=== PATIENT | female | born 1950 | race Caucasian/White ===

== ENCOUNTER 2016-04-10 09:19 | Day surgery (SDC) | payer BC ==
[~2016-04-10] VITALS: Ht 170.2 cm; Wt 78.4 kg
[~2016-04-10 09:19] MED LIST: CHOLESTEROL MED PO; DIVA-16 PO; LATUDA PO; LOMOTIL PO; NAUSEA MED PO; PRIM250T37 PO; SERT20OR PO
[2016-04-10] MEDS ORDERED: RISPERDAL (10:22)
[2016-04-10] MEDS ORDERED: LORAZEPAM (10:22)
[2016-04-10] MEDS ORDERED: INHALER (10:22)
[2016-04-10 10:25] VITALS: Ht 170.2 cm; Wt 78.4 kg
[2016-04-10 10:46] VITALS: BP 94/63; PULSE 73; RESP 18
[2016-04-10] MEDS ORDERED: LIDOCAINE 2% (SDV) 5 ML INJ ONE (10:50)
[2016-04-10] MEDS ORDERED: MIDAZOLAM 1 MG/ML 2 ML INJ ONE (10:50)
[2016-04-10] MEDS ORDERED: PROPOFOL 20 ML ONE ×2 (10:50→11:30)
[2016-04-10 11:20] VITALS: BP 96/57; PULSE 84; RESP 20
[2016-04-10 11:42] VITALS: BP 98/53; PULSE 76; RESP 12
[2016-04-10 12:05] VITALS: BP 122/80; PULSE 74; RESP 21
--- NOTE | 2016-04-10 18:21 | GILP ---
DATE OF PROCEDURE: INDICATION: A 66-year-old female undergoing this procedure for chronic diarrhea and colon cancer sc alejandra. The risks of the procedure, related and unrelated complications, anesthetic risks, alterna tives discussed. Informed consent was obtained. DESCRIPTION OF PROCEDURE: The patient was brought to the GI lab, sedated by Dr. Montgomery. After obtain ing sedation, scope was passed with much ease into rectum and she had a semi-formed stool throughout the colon precluding the visibility. Scope was advanced all the way into the cecum and entered int o terminal ileum, which was normal. Appendiceal orifice was normal. However, there was a thickened fold in the prececal area, which was biopsied. There was another flat polyp identified at 60 cm, a gain biopsied with jumbo biopsy forceps. There was another flat polyp in the neighborhood. These a re totally flat polyps. Again it was biopsied and there was a third polyp, also flat in the same ne ighborhood, which was biopsied and completely obliterated, all the 3 polyps with the jumbo biopsy fo rceps. Yuridia ink injected to identify the site of biopsy. It was injected on the opposite wall. W hile coming out, the rest of the mucosa was normal. Retroflexion done in the rectum, internal hemor rhoids identified. Biopsies randomly obtained also from the rectum and the right side of the colon to rule out collagenous or microscopic colitis. IMPRESSION: 1. Inadequate prep. 2. Flat 3 polyps successfully ablated by jumbo biopsy forceps. 3. Yuridia ink injected at the site of identification of flat polyp. 4. Thickened fold in the cecal area, biopsied. 5. Internal hemorrhoids. PLAN: Review histopathology. Stay on high fiber diet. Based on the histopathology, we will decide regarding the future colonoscopy. Most probably she would need within 3 years. Dictated By: ANDRY FLORES/SIRIA Conf#: [id number] DID#: [id number] CC: Primary Care; ANDRY MARTINEZ MD;*EndCC*
== END 2016-04-10 12:00 | disposition home or self-care (01) ==
LOC: GIL 09:19
PROVIDERS: ATTEND Internal Medicine Gastroenterology
DX: Z12.11 Encounter for screening for malignant neoplasm of colon (principal); D12.0 Benign neoplasm of cecum; K64.8 Other hemorrhoids; E78.5 Hyperlipidemia, unspecified; J44.9 Chronic obstructive pulmonary disease, unspecified
CPT/HCPCS: 45380; 45381; 88305; J2250; Z7610

== ENCOUNTER 2017-09-16 16:03 | Emergency (ER) | END 2017-09-16 17:09 | disposition home or self-care (01) ==

== ENCOUNTER 2017-10-28 18:29 | Emergency (ER) | END 2017-10-28 22:55 | disposition home or self-care (01) ==